=== PATIENT | male | born 1970 | race Caucasian/White ===

== ENCOUNTER 2016-09-27 13:36 | Inpatient (IN) | payer MEDICAID ==
--- NOTE | ~2016-09-27 | HP ---
Unit #: [id number] #: [id number] Patient: DAREN SHEIKH [id number] [place] [address] [id number] MR#: [id number] NAME: DAREN SHEIKH. ROOM: [facility] Age: 46 Sex: M Admission Date: 09/27/2016 : 1970 Attending Physician: Cristiano Pascual M.D. Admitting Physician: Cristiano Pascual M.D. Primary Care Physician: Ion Doctor Not In System HISTORY AND PHYSICAL HISTORY OF PRESENT ILLNESS Daren is a 46 year old admitted to [facility] because of his abuse of alcohol. PAST MEDICAL HISTORY 1. Long history of alcohol abuse. 2. High blood pressure. PAST SURGICAL HISTORY Nothing reported. ALLERGIES No known drug allergies. SOCIAL HISTORY Smokes one pack per day. He does not smoke. Drinks two pints of vodka plus a case of beer on a daily basis. Denies illicit drug use. FAMILY HISTORY Medically noncontributory. REVIEW OF SYSTEMS CONSTITUTIONAL: No fever or chills. HEENT: Denies any sore throat, ear pain or runny nose. CARDIOVASCULAR: Denies chest pain, irregular heart rhythm or palpitations. CHEST: Denies shortness of breath or cough. No hemoptysis. GASTROINTESTINAL: Denies nausea, vomiting, diarrhea or chronic constipation. ENDOCRINE: Denies history of increased thirst or urination. No recent significant weight loss or gain. GENITOURINARY: Denies dysuria, frequency, or hematuria. SKIN: Denies any rashes. HEMATOLOGIC: Denies history of increased bleeding or bruising. MUSCULOSKELETAL: Denies any hot, swollen joints. No generalized muscle pain. NEUROLOGIC: Denies problems with vision or speech. No frequent, severe headaches. No numbness, tingling or weakness in any extremities. Denies loss of bladder or bowel control. CURRENT MEDICATIONS Detox protocol, Toprol XL 50 mg q day, Zestril 40 mg q day, Norvasc 5 mg q day. Unit #: [id number] #: [id number] Patient: DAREN SHEIKH PHYSICAL EXAMINATION GENERAL: Alert, well-nourished, in no apparent distress. VITAL SIGNS: Blood pressure 124/70, heart rate 80, respirations 16, temperature 98.6. WEIGHT: 175 pounds. HEIGHT: 5'10". SKIN: Warm and dry without rash or lesion. HEENT: Normocephalic. TMs not viewed. Oral and nasal passages clear. Conjunctivae clear. Pupils equal, round and reactive to light and accommodation. Extraocular movements intact. NECK: Supple without lymphadenopathy or thyromegaly. HEART: Regular rate and rhythm without murmur. LUNGS: Clear. ABDOMEN: Soft, nontender. : Not done. EXTREMITIES: No evidence of cyanosis, clubbing or edema. Moves all extremities without focal deficit. NEUROLOGICAL: Grossly within normal limits. Cranial Nerves: II: Visual lindsey are intact. III, IV AND : Extraocular movements are intact. Pupils are equal, round and reactive to light. V: Facial sensation is grossly normal. VII: Facial movements and expression are normal. VIII: Auditory acuity grossly intact. IX, X: Uvula is midline. Phonation is normal. XI: Patient shrugs shoulders and turns head normally. XII: Tongue protrudes in the midline. Sensory and Motor Function: Sensory and motor sensation is grossly normal. Motor: moves all extremities well. Coordination: Gait is normal. Deep Tendon Reflexes: Intact. IMPRESSION Psychiatric admission. RECOMMENDATIONS PSYCHIATRIC: Per psychiatrist. MEDICAL: I see no contraindications to participating in facility's activities. MEDICAL PROGNOSIS Good. MEDICAL CONDITION Stable. Dictated by... Belinda Robledo P.A.-C. for Chente Verdugo/jolene TD: 09/29/2016 01:16 JOB #: [id number] Unit #: [id number] #: [id number] Patient: DAREN SHEIKH HISTORY AND PHYSICAL Page 1 of 1 X Belinda Robledo HISTORY AND PHYSICAL
--- NOTE | ~2016-09-27 | DS ---
Unit #: [id number] #: [id number] Patient: DAREN SHEIKH [id number] [facility] [address] [place] [address] [id number] I MR#: [id number] NAME: DAREN SHEIKH. ROOM: [facility] Age: 46 Sex: M Admission Date: 09/27/2016 : 1970 Discharge Date: 10/02/2016 Attending Physician: Cristiano Pascual M.D. Primary Care Physician: Generic Doctor Not In System DISCHARGE SUMMARY IDENTIFYING DATA Mr. Sheikh is a 46-year-old white male who is a resident of [place], [place] and was transferred to us from [facility] Emergency Room. DISCHARGE DIAGNOSES Psychiatric: Alcohol dependence, moderate and acute withdrawals; alcohol-induced mood disorder. Medical: None. Stressors: Moderate psychosocial stressors. HISTORY OF PRESENT ILLNESS Please see initial psychiatric evaluation for details. PAST PSYCHIATRIC HISTORY Please see initial psychiatric evaluation for details. PAST MEDICAL HISTORY Please see initial psychiatric evaluation for details. HOSPITAL COURSE The patient was admitted to the adult chemical dependency unit at [facility]aro and was oriented to the hospital environment. Routine p.r.n. medications were initiated, and he was started on the alcohol detox protocol and was closely monitored. He was taking the medications regularly and was tolerating them fairly well and was able to show a decent therapeutic response with improvement in depression and anxiety and was willing to continue treatment on an outpatient basis and as such, it was decided that he will be discharged home and will continue treatment on an outpatient basis. DISCHARGE MEDICATIONS None. DISCHARGE CONDITION Stable. PROGNOSIS Fair. Dictated by... Cristiano Pascaul M.D. Unit #: [id number] #: [id number] Patient: DAREN SHEIKH IAA/modl TD: 10/04/2016 18:46 JOB #: [id number] DISCHARGE SUMMARY Page 1 of 1 X Cristiano Pascual MD X DISCHARGE SUMMARY
--- NOTE | ~2016-09-27 | PN ---
Unit #: [id number] #: [id number] Patient: DAREN SHEIKH [id number] [facility] [address] [place] [address] [id number] I MR#: [id number] NAME: DAREN SHEIKH. ROOM: P185 Age: 46 Sex: M Admission Date: 09/27/2016 : 1970 Attending Physician: Cristiano Pascual M.D. Admitting Physician: Cristiano Pascual M.D. Primary Care Physician: Generic Doctor Not In System [facility] PROGRESS NOTES DATE October 01, 2016 DISCUSSION Mr. Sheikh is a 46-year-old white male, who was seen today and chart was reviewed and the case was discussed with the staff. He has been anxious, withdrawn, and rather seclusive to himself. Meanwhile, he has been cooperative with the treatment recommendations and he has been taking the medications and tolerating them fairly well. MENTAL STATUS EXAMINATION Middle-aged white male, who was casually dressed with fair personal hygiene and appears to be in no acute distress or discomfort. He was awake and alert with impaired attention and concentration. His mood is anxious with a congruent affect. His speech is slow and restricted in content. His insight and judgment remain significantly impaired. TREATMENT PLAN 1. We will continue him on his current medications and treatment protocol, and will monitor his response to the medications, and make further adjustments as needed. 2. We will continue to followup. Dictated by... Chente Oliver/david TD: 10/01/2016 09:42 JOB #: [id number] Unit #: [id number] #: [id number] Patient: DAREN SHEIKH [facility] PROGRESS NOTES Page 1 of 1 X Cristiano Pascual MD X PROGRESS NOTE
--- NOTE | ~2016-09-27 | PN ---
Unit #: [id number] #: [id number] Patient: DAREN SHEIKH [id number] [facility] [address] [place] [address] [id number] MR#: [id number] NAME: DAREN SHEIKH. ROOM: P185 Age: 46 Sex: M Admission Date: 09/27/2016 : 1970 Attending Physician: Cristiano Pascual M.D. Admitting Physician: Cristiano Pascual M.D. Primary Care Physician: Generic Doctor Not In System [facility] PROGRESS NOTES DATE 09/30/2016 DISCUSSION Mr. Sheikh is a 46-year-old white male with alcohol dependence and mood disorder who was seen today and chart was reviewed and case was discussed with the staff. He has been anxious, withdrawn and rather seclusive to herself. Meanwhile, he has been cooperative with treatment recommendations and has been taking medications and tolerating them fairly well with no reported side effects. MENTAL STATUS EXAMINATION Middle-aged white male who was casually dressed with marginal personal hygiene and appears to be in some distress and discomfort. He was awake and alert with impaired attention and concentration. His mood was anxious with congruent affect. His speech is slow and tangential. His thought processes were disorganized with some looseness of associations and flight of ideas. His insight and judgement remains significantly impaired. TREATMENT PLAN 1. Will continue his current medications and treatment protocol and will monitor his response to the medications and make further adjustments as needed. 2. Will continue to follow up. Dictated by... Chente Oliver/lori TD: 09/30/2016 20:04 JOB #: [id number] Unit #: [id number] #: [id number] Patient: DAREN SHEIKH [facility] PROGRESS NOTES Page 1 of 1 X Cristiano Pascual MD PROGRESS NOTE
--- NOTE | ~2016-09-27 | PA ---
Unit #: [id number] #: [id number] Patient: [facility] [id number] [facility] [address] [place] [address] [id number] Tiesha MR#: [id number] NAME: DAREN SHEIKH. ROOM: [facility] Age: 46 Sex: M Admission Date: 09/27/2016 : 1970 Date of Assessment: Attending Physician: Cristiano Pascual M.D. Admitting Physician: Cristiano Pascual M.D. Primary Care Physician: Ion Doctor Not In System PSYCHIATRIC ASSESSMENT DATE OF SERVICE 09/27/2016. IDENTIFYING DATA Mr. Sheikh is a 46-year-old single white male, who is a resident of [place], [place] and was transferred to us from [facility] Emergency Room. CHIEF COMPLAINT "I came to the hospital due to my alcohol use." HISTORY OF PRESENT ILLNESS Mr. Sheikh is a 46-year-old white male with long history of alcohol dependence, who is known to us from previous encounter, was brought to the hospital emergency room with a blood alcohol level of 0.295 and reports that he came due to his alcohol use and that his last drink was 5 in the morning and he has been drinking vodka and beer and does report increasing depression, anxiety, irritability, restlessness, feelings of hopelessness and helplessness, but denies any suicidal ideations, intent, or plan. SUBSTANCE ABUSE HISTORY The patient reports history of alcohol dependence and has been drinking since he was 15 years old and currently has been drinking 2 pints of vodka and 24 beers a day on his own account and denies any other substance abuse issues. PAST PSYCHIATRIC HISTORY The [facility] and has been diagnosed and treated for mood disorder. Review of the medical records indicated currently he is not active in treatment program, is not seeing a psychiatrist, not taking any psychotropic medications. PAST MEDICAL HISTORY Hypertension. PERSONAL AND SOCIAL HISTORY A 46-year-old white male, who reports that he is single, unemployed, and essentially homeless and has poor social support system. MENTAL STATUS EXAMINATION A middle-aged white male, who was casually dressed with fair personal hygiene, appears to be in no acute distress or discomfort. He was awake Unit #: [id number] #: [id number] Patient: DAREN SHEIKH and alert on interaction with intact orientation to time, place, and person. His mood was anxious and depressed with a congruent affect. His speech was slow and restricted in content. His thought processes were disorganized with some looseness of associations and flight of ideas and suicidal ideations. His insight and judgment remain significantly impaired. DIAGNOSTIC IMPRESSION Psychiatric: Alcohol dependence, moderate, in acute withdrawals; alcohol-induced mood disorder. Medical: None. Stressors: Moderate psychosocial stressors. TREATMENT PLAN 1. The patient has presented with history of mood disorder and substance abuse and has been decompensating and will need inpatient hospitalization for detoxification, safety, and stabilization. We will start him back on his home medications, and alcohol detox protocol was initiated as well. 2. Supportive therapy was provided to the patient. 3. Safe, structured, and nourishing environment will be provided. ESTIMATED LENGTH OF STAY 5 to 7 days. ABILITY TO HELP SELF Limited. WILLINGNESS TO HELP SELF The patient appears to be willing to help self. STRENGTHS 1. Communicative. 2. Cooperative. PROBLEMS 1. Chronic dysphoric symptoms. 2. Chronic chemical dependency. 3. Poor social support system. DISCHARGE CRITERIA This will be contingent upon the patient's ability to go through detox without having any significant withdrawal symptoms as well as his ability to stay safe to himself, particularly after discharge from the hospital. Dictated by... Chente Oliver/carlos eduardo TD: 09/28/2016 07:09 JOB #: [id number] Unit #: [id number] #: [id number] Patient: DAREN SHEIKH PSYCHIATRIC ASSESSMENT Page 1 of 1 X Cristiano Pascual MD PSYCHIATRIC ASSESSMENT
--- NOTE | ~2016-09-27 | PN ---
Unit #: [id number] #: [id number] Patient: DAREN SHEIKH [id number] [facility] [address] [place] [address] [id number] MR#: [id number] NAME: DAREN SHEIKH. ROOM: P185 Age: 46 Sex: M Admission Date: 09/27/2016 : 1970 Attending Physician: Cristiano Pascual M.D. Admitting Physician: Cristiano Pascual M.D. Primary Care Physician: Generic Doctor Not In System [facility] PROGRESS NOTES DATE September 29, 2016 DISCUSSION Mr. Sheikh is a 46-year-old white male, who was seen today and chart was reviewed and the case was discussed with the staff. He has been anxious, withdrawn, and rather seclusive to himself. Meanwhile, he has been cooperative with the treatment recommendations and he has been taking the medications and tolerating them fairly well. MENTAL STATUS EXAMINATION Middle-aged white male, who was casually dressed with fair personal hygiene and appears to be in distress and discomfort. He was awake and alert with impaired attention and concentration. His mood is anxious with a congruent affect. He denies any suicidal or homicidal ideations. His insight and judgment remain slightly impaired. TREATMENT PLAN 1. We will continue him on his current detox protocol, and will monitor his response, and make further adjustments as needed. 2. We will continue to followup. Dictated by... Chente Oliver/david TD: 09/30/2016 10:53 JOB #: [id number] [facility] PROGRESS NOTES Page 1 of 1 X Cristiano Pascual MD PROGRESS NOTE
== END 2016-10-02 09:50 | disposition home or self-care (01) | DRG 897 ==
LOC: P1E 17:01
PROC: HZ2ZZZZ Detoxification Services for Substance Abuse Treatment (ICD-10-PCS; principal; 2016-09-27)
DX: F10.239 Alcohol dependence with withdrawal, unspecified (principal); F10.24 Alcohol dependence with alcohol-induced mood disorder; I10 Essential (primary) hypertension; F17.210 Nicotine dependence, cigarettes, uncomplicated